=== PATIENT | male | born 1975 | race Caucasian/White ===

== ENCOUNTER 2017-07-03 15:35 | Emergency (ER) | payer MEDICAID ==
[~2017-07-03] VITALS: Ht 167.6 cm; Wt 95.0 kg
[2017-07-03 15:44] VITALS: BP 136/89
[2017-07-03] MEDS ORDERED: LIDOCAINE HCL 1% 20ML VIAL (Pyxis) INJ INFIL ONE (17:15)
== END 2017-07-03 18:25 | disposition home or self-care (01) ==
LOC: ER 16:29
DX: S61.512A Laceration without foreign body of left wrist, initial encounter (principal); W26.0XXA Contact with knife, initial encounter; Y93.89 Activity, other specified; Y92.89 Other specified places as the place of occurrence of the external cause; Y99.8 Other external cause status
CPT/HCPCS: 12002; 99283; J3490